=== PATIENT | male | born 1940 | race American Indian/Alaskan Native ===

== ENCOUNTER 2017-03-08 07:59 | Outpatient (CLI) | payer MEDICARE ==
--- NOTE | 2017-03-08 12:14 | Ultrasound Report ---
RENAL ULTRASOUND: 03/08/17 CLINICAL: Enlarged prostate and lower urinary tract symptoms. FINDINGS: High resolution ultrasound demonstrated normal nondilated renal collecting systems. A echogenicity of the kidneys. No renal mass or calculus. A right lower pole cyst measures 1.9 cm. A left mid portion renal cyst measures 2.4 cm. The right kidney measures 10.8 x 5.3 x 4.7-cm. The renal parenchyma measures 1.3-cm in thickness. The left kidney measures 10.1 x 5.7 x 4.7-cm. The renal parenchyma measures 1.4-cm in thickness. A minimally distended and normal urinary bladder. IMPRESSION: 1. No hydronephrosis. 2. Bilateral benign renal cysts in otherwise normal kidneys.
== END 2017-03-08 08:00 | disposition home or self-care (01) ==
LOC: SPVWC 07:59
PROVIDERS: ATTEND Urology
DX: N40.1 Benign prostatic hyperplasia with lower urinary tract symptoms (principal); N28.1 Cyst of kidney, acquired
CPT/HCPCS: 76770